=== PATIENT | male | born 1995 | race African-American/Black ===

== ENCOUNTER 2016-05-29 22:34 | Emergency (ER) | payer SELFPAY ==
--- NOTE | ~2016-05-29 | CR170 ---
[facility] A Service of [facility] & [facility] RADIOLOGY TEXT RESULTS PATIENT: TOÑA MATHIS LOCATION: CFTX : [birth year] UNIT #: [id number] AGE: [address]: AHMET RIVERA APRN SEX: M ORDER DR: [id number] [facility] [address] [place], [place] [address] [id number] MR#: [id number] Acc #: [id number] NAME: TOÑA MATHIS : 1995 SEX: M STUDY DATE/TIME: 05/29/2016 22:56 UNIT: [facility] ROOM: STUDY DESCRIPTION: CR Knee 2 Views Rt Attending Physician: Ahmet Rivera Aprn Ordering Physician: Ahmet Rivera Aprn Primary Care Physician: Primary Care Physician No MEDICAL IMAGING REPORT This report is preliminary unless electronic signature is present EXAM Right knee series INDICATIONS Right knee pain after injury today. PROCEDURE 2 views right knee COMPARISON None. FINDINGS No acute fracture, dislocation or joint effusion. IMPRESSION No acute findings. Dictated by... Michael Tomas M.D. THIS IS AN ELECTRONICALLY VERIFIED REPORT Michael Tomas M.D. at 05/30/2016 10:24 PM EED/psc TD: 05/30/2016 02:19 JOB #: [id number] MEDICAL IMAGING REPORT Page 1 of 1 COPY
[~2016-05-29 22:34] MED LIST: ALEVE PO; MOTRIN400 MG PO; NO MEDICATIONS; VOLTAREN75 MG
== END 2016-05-29 23:49 | disposition home or self-care (01) ==
LOC: CFTX 22:34
DX: S80.01XA Contusion of right knee, initial encounter (principal); F17.200 Nicotine dependence, unspecified, uncomplicated; W50.0XXA Accidental hit or strike by another person, initial encounter; Y92.39 Other specified sports and athletic area as the place of occurrence of the external cause; J45.909 Unspecified asthma, uncomplicated
CPT/HCPCS: 29530; 73560; 99283